=== PATIENT | male | born 2000 | race Caucasian/White ===

== ENCOUNTER → 2022-10-28 | Outpatient (CLI) | payer BC ==
[~2022-10-28] MED LIST: BENADRYL25 MG; FINA5
[2022-10-28 13:48] LABS: Albumin, Blood 4.7 g/dL (3.4-5.0); Albumin/Globulin Ratio 1.7 (0.8-1.8); Bilirubin, Total 0.6 mg/dL (0.1-1.0); Bun/Creatinine Ratio 9.9 (12.0-20.0); Calcium, Blood 9.6 mg/dL (8.5-10.1); Creatinine, Blood 1.41 mg/dL (0.60-1.20); Globulin, Blood 2.8 g/dL (2.2-4.0); Potassium, Blood 3.9 mmol/L (3.5-5.5); Total Protein, Blood 7.5 g/dL (6.4-8.2)
== END ==
LOC: LAB 12:19 → LAB SHORT 12:19
PROVIDERS: Physician Assistant
DX: Z00.00 Encounter for general adult medical examination without abnormal findings (principal)
CPT/HCPCS: 80053

== ENCOUNTER → 2024-08-16 | Outpatient (CLI) | payer OTHER, BC ==
[~2024-08-16] MED LIST changes: +ANASPAZ0.125 MG PO; +Propecia1 MG PO
[2024-08-19 20:07] LABS: CALPROTECTIN,FECAL 51 ug/g (<=49)
== END ==
LOC: LAB SHORT 17:56 → LAB 17:56
PROVIDERS: Internal Medicine
DX: K52.9 Noninfective gastroenteritis and colitis, unspecified (principal)
CPT/HCPCS: 83993

== ENCOUNTER 2024-12-21 20:19 | Emergency (ER) | payer BC ==
[~2024-12-21] VITALS: Ht 182.9 cm; Wt 86.2 kg
[2024-12-21 20:31] VITALS: BP 150/90
[2024-12-21] MEDS ORDERED: OMEP20ER PO (20:36)
== END 2024-12-21 20:25 | disposition home or self-care (01) ==
LOC: ER 20:19
DX: S01.01XA Laceration without foreign body of scalp, initial encounter (principal); W22.8XXA Striking against or struck by other objects, initial encounter; Y93.H3 Activity, building and construction; Z88.0 Allergy status to penicillin
CPT/HCPCS: 90471; 90715; 99282-25; A9270